=== PATIENT | male | born 2000 | race African-American/Black ===

== ENCOUNTER 2018-05-27 12:33 | Emergency (ER) | payer BC ==
[~2018-05-27] VITALS: Ht 180.3 cm; Wt 72.6 kg
[2018-05-27] MEDS ORDERED: MOBIC7.5 MG PO (13:48)
[2018-05-27 14:02] VITALS: BP 124/68
== END 2018-05-27 14:03 | disposition home or self-care (01) ==
LOC: ER 12:33
DX: M25.461 Effusion, right knee (principal); M25.561 Pain in right knee

== ENCOUNTER 2019-04-09 13:18 | Emergency (ER) | payer BC ==
[~2019-04-09] VITALS: Ht 180.3 cm; Wt 77.1 kg
[~2019-04-09 13:18] MED LIST: MOBIC7.5 MG PO
[2019-04-09] MEDS ORDERED: MOBIC7.5 MG PO (15:18)
[2019-04-09 15:41] VITALS: BP 125/78
== END 2019-04-09 15:43 | disposition home or self-care (01) ==
LOC: ER 13:18
DX: M25.561 Pain in right knee (principal); M25.461 Effusion, right knee